=== PATIENT | male | born 1955 | race Caucasian/White ===

== ENCOUNTER 2017-06-21 02:06 | Emergency (ER) | payer BC ==
[~2017-06-21] VITALS: Ht 175.3 cm; Wt 99.8 kg
[2017-06-21 03:40] LABS: CALCIUM 8.4 mg/dL (8.5-10.1); CARBON DIOXIDE 28.1 mmol/L (21-32); CHLORIDE SERUM 103 mmol/L (98-107); CREATININE SERUM 0.7 mg/dL (0.7-1.3); GFR1 > 60 mL/min; GLUCOSE SERUM 121 mg/dL (74-106); POTASSIUM SERUM 3.6 mmol/L (3.5-5.1); SODIUM SERUM 139 mmol/L (136-145)
[2017-06-21 04:49] VITALS: BP 123/86
== END 2017-06-21 04:49 | disposition home or self-care (01) ==
LOC: ED 02:06
PROVIDERS: Emergency Medicine
DX: I10 Essential (primary) hypertension (principal); E11.9 Type 2 diabetes mellitus without complications
CPT/HCPCS: 36415

== ENCOUNTER 2019-02-06 18:32 | Emergency (ER) | payer BC ==
[~2019-02-06] VITALS: Ht 177.8 cm; Wt 96.2 kg
[2019-02-06 18:39] VITALS: Ht 177.8 cm; Wt 96.2 kg
[2019-02-06 19:12] LABS: BASOPHIL % 0.2 % (0-2); PLATELET COUNT 291 x10^3mcL (130-400)
[2019-02-06 19:13] LABS: RED CELL DISTRIBUTION WIDTH 17.5 % (11.5-14.5)
[2019-02-06 19:26] LABS: CARBON DIOXIDE 23.1 mmol/L (21-32); CHLORIDE SERUM 105 mmol/L (98-107); CREATININE SERUM 0.8 mg/dL (0.7-1.3); GFR1 > 60 mL/min; GLUCOSE SERUM 200 mg/dL (74-106); POTASSIUM SERUM 4.1 mmol/L (3.5-5.1); SODIUM SERUM 142 mmol/L (136-145)
[2019-02-06 19:33] LABS: ALBUMIN 3.7 g/dL (3.4-5.0); ALKALINE PHOSPHATASE 88 U/L (46-116); ALT/SGPT 17 U/L (16-63); AST/SGOT 14 U/L (15-37); BILIRUBIN TOTAL 0.18 mg/dL (0.20-1.00); TOTAL PROTEIN, SERUM 7.6 g/dL (6.4-8.2)
[2019-02-06 20:21] VITALS: BP 149/97
== END 2019-02-06 20:21 | disposition home or self-care (01) ==
LOC: ED 18:32
DX: R07.89 Other chest pain (principal); I10 Essential (primary) hypertension; E11.9 Type 2 diabetes mellitus without complications
CPT/HCPCS: 36415